=== PATIENT | female | born 1945 ===

== ENCOUNTER 2019-03-17 10:21 | Emergency (ER) | payer MEDICARE, OTHER ==
[2019-03-17 10:35] VITALS: BP 121/78; PULSE 97; RESP 16; TEMP 98.4; O2SAT 100; BMI 41.5
[2019-03-17] MEDS ORDERED: Naproxen 500 MG TAB PO STA (11:53)
[2019-03-17] MEDS ORDERED: Naproxen 500 MG TAB PO ONE (12:03)
--- NOTE | 2019-03-17 12:42 | ED PDOC ---
Lower Extremity Pain/Injury Time Seen by Provider: 03/17/19 10:38 Chief Complaint (Nursing): Lower Extremity Problem/Injury Chief Complaint (Provider): LEft knee pain x 1 week History Per: Patient History/Exam Limitations: no limitations Onset/Duration Of Symptoms: Days Current Symptoms Are (Timing): Still Present Severity: Moderate Pain Scale Rating Of: 5 Additional Complaint(s): 74 yo female with history of osteoporosis presents for evaluation of left knee pain for 1 week. Pt denies trauma. PT states the pain is on the medial aspect of the knee. Pt denies swelling, fever or chills. PT did not take anything for pain. PT denies similar in the past. Past Medical History Reviewed: Historical Data, Nursing Documentation, Vital Signs Vital Signs: Last Vital Signs Temp 98.4 F 03/17/19 10:29 Pulse 97 H 03/17/19 10:29 Resp 16 03/17/19 10:29 BP 121/78 03/17/19 10:29 Pulse Ox 100 03/17/19 10:29 Primary Care Provider: DoctorNate - Medical History PMH: Osteoporosis - Surgical History Surgical History: No Surg Hx - Family History Family History: States: No Known Family Hx - Living Arrangements Living Arrangements: With Family - Social History Current smoker - smoking cessation education provided: No Alcohol: None Drugs: Denies - Home Medications Home Medications: Ambulatory Orders Medication Instructions Recorded Naproxen [Naprosyn] 500 mg PO BID PRN #20 tablet 03/17/19 - Allergies Allergies/Adverse Reactions: Allergies Allergy/AdvReac Type Severity Reaction Status Date / Time No Known Allergies Allergy Verified 03/17/19 10:36 Review of Systems ROS Statement: Except As Marked, All Systems Reviewed And Found Negative Constitutional: Negative for: Fever, Chills Gastrointestinal: Negative for: Nausea, Vomiting, Abdominal Pain, Diarrhea Musculoskeletal: Positive for: Other (Knee pain). Negative for: Foot Pain Physical Exam - Reviewed Nursing Documentation Reviewed: Yes Vital Signs Reviewed: Yes - Physical Exam Appears: Positive for: Well, Non-toxic, No Acute Distress Head Exam: Positive for: ATRAUMATIC, NORMAL INSPECTION, NORMOCEPHALIC Skin: Positive for: Normal Color, Warm, DRY Eye Exam: Positive for: Normal appearance ENT: Positive for: Normal ENT Inspection Neck: Positive for: Normal, Painless ROM Cardiovascular/Chest: Negative for: Bradycardia Respiratory: Negative for: Accessory Muscle Use, Respiratory Distress Pulses-Post. Tibialis (L): 2+ Pulses-Radial (L): 2+ Back: Positive for: Normal Inspection Extremity: Positive for: Normal ROM, Tenderness (Medial left knee, no bony point tenderness ). Negative for: Deformity, Swelling Neurological/Psych: Positive for: Awake, Alert, Normal Tone - ECG O2 Sat by Pulse Oximetry: 100 Pulse Ox Interpretation: Normal Medical Decision Making Medical Decision Making: Pt reports feeling better after naproxen. Discussed f/u for continued knee pain. XR without acute abnormalities. Disposition - Clinical Impression Clinical Impression: Knee pain - Patient ED Disposition Is Patient to be Admitted: No Counseled Patient/Family Regarding: Diagnosis, Need For Followup, Rx Given - Disposition Referrals: Elliott Peck III, MD [Staff Provider] - Disposition: Routine/Home Disposition Time: 12:39 Condition: GOOD Prescriptions: Naproxen [Naprosyn] 500 mg PO BID PRN #20 tablet PRN Reason: Pain Instructions: Knee Pain (DC) Forms: [facility] [employer] [facility] (K[place]akh) Print Language: SAO TOMEAN
--- NOTE | 2019-03-17 13:27 | RAD ---
Date of service: 03/17/2019 PROCEDURE: Left Knee Radiographs. HISTORY: Pain. No history of recent/ related trauma provided. 1 week duration COMPARISON: None. TECHNIQUE: 2 views obtained. FINDINGS: BONES: Normal. No fracture. JOINTS: Normal. No osteoarthritis. JOINT EFFUSION: None. OTHER FINDINGS: None. IMPRESSION: No significant or acute findings to account for/ related to the clinical presentation.
== END 2019-03-17 12:49 | disposition home or self-care (01) ==
LOC: H.ER 10:21
DX: M25.562 Pain in left knee (principal); M81.0 Age-related osteoporosis without current pathological fracture